=== PATIENT | male | born 1980 | race Native Hawaiian/Other Pacific Islander ===

== ENCOUNTER 2019-08-15 19:51 | Emergency (ER) | payer BC ==
[~2019-08-15] VITALS: Ht 180.3 cm; Wt 170.1 kg
[2019-08-15 19:55] VITALS: TEMP 98.5
[2019-08-15 20:27] LABS: PLATELET COUNT 222 K/uL (142-355)
[2019-08-15 20:30] LABS: POTASSIUM 3.8 mmol/L (3.6-5.2)
[2019-08-15 21:58] VITALS: BP 146/89
== END 2019-08-15 22:01 | disposition home or self-care (01) ==
LOC: ED 19:51
PROVIDERS: Emergency Medicine
DX: M10.9 Gout, unspecified (principal); M77.11 Lateral epicondylitis, right elbow
CPT/HCPCS: 80053; 84550; 85027; 96372; 99283; J1885